=== PATIENT | female | born 1945 | race African-American/Black ===

== ENCOUNTER 2016-12-03 20:46 | Inpatient (IN) ==
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
[2016-12-03 23:20] LABS: Basophils % 0.1 % (0.0-0.8); Immature Granulocytes % 2.1 %; Immature Granulocytes Absolute 0.75 #; Lymphocytes % 8.5 % (21.3-54.2); Mean Corpuscular HGB Conc 30.9 GM/DL (32-36); Mean Corpuscular Hemoglobin 23 PG (27-34); Mean Corpuscular Volume 74.9 FL (87-102); Mean Platelet Volume 10.3 FL (9.6-12.0); Monocytes # 1.2 10*3/uL (0.11-0.8); Monocytes % 3.5 % (1.7-12.7); Neutrophils # 30.1 10*3/uL (1.4-7.4); Neutrophils % 85.8 % (38.7-73.9); Platelet Count 415 T/CUMM (130-400); Red Blood Count 1.99 MC/CUMM (3.8-5.5); Red Cell Distribution Width 18.4 % (9.3-17.3); White Blood Count 35.1 T/CUMM (4-12)
--- NOTE | 2016-12-03 23:21 | Hospitalist History & Physical ---
Assessment and Plan (1) Abdominal mass, RLQ (right lower quadrant) Status: Acute Assessment and plan: The patient admits to the hospital with a large mass in the abdomen. We will obtain CT scan of abdomen and pelvis to evaluate the possible origin of the tumor. We will obtain cancer antigen markers 125, 19-9, and CEA. The patient will be treated for symptoms and given IV hydration overnight. We will recheck electrolytes tomorrow. Current Visit: Yes History of Present Illness Chief complaint: Abdominal pain and mass History of present illness: Ms. Kim is a 71 year old female who comes in transfer from [facility]. The patient presented there with abdominal distention and abdominal pain. We have no prior medical records for the patient. She states that her discomfort began about 2 days prior to admission to the hospital. The patient presents with large hard mass in the right lower mid and central abdomen. The patient denies shortness of breath or angina. The patient denies fever, chills. The patient states that she has been losing weight over the last several months and is now bedbound. Allergies Allergy/AdvReac Type Severity Reaction Status Date / Time No Known Allergies Allergy Verified 12/03/16 21:03 Medical,Surgical,& Family Hx - Medical History Endocrine: History of: Diabetes Mellitus (NIDDM) - Family History Family History: Reports;: Family Hypertension - Social History Smoking Status: Never smoker Frequency of Alcohol Use: None Type of Drug Use: None Marital Status: Single Lives With:: Alone Functional capacity: bed bound 12 point system: reviewed and no additional remarkable complaints except as stated Exam - Constitutional Vitals: Period Temp Pulse Resp BP Sys/Stout Pulse Ox Last 24 Hr 98.6 F-98.6 F 96-96 22-22 115-115/68-68 97 Exam: Constitutional System: Mild distress. No tremulousness. This is an emaciated patient with protuberant abdomen Head: Normocephalic, atraumatic. Ears, Nose and Throat System: No evidence of Otitis or Mastoiditis. No epistaxis or discharge Eyes System: Pupils equal, round, and reactive. Extraocular muscles intact. Neck: Supple, without adenopathy, No jugular venous distention. No thyromegaly , neck mass, or prior surgery apparent. Respiratory System: Chest clear to auscultation. Cardiovascular System: Heart with regular rate and rhythm. No murmur. GI System: Abdomen protuberant with a hard mass seeming to arise in the right lower quadrant and taking up about half of the belly Musculoskeletal System: limbs with 1+ pedal edema. Full distal pulses. Neurological System: No discernable sensory deficit. No aphasia Psychiatric System: Conversation is befudled Results - Labs Lab Results: I have reviewed the past 24 hour labs
[2016-12-03 23:28] LABS: Hematocrit 14.9 VOL% (35.7-47.0); Hemoglobin 4.6 GM/DL (12.0-16.0)
[2016-12-03 23:30] LABS: Calcium 7.8 MG/DL (8.5-10.1); Osmolality,Calculated 279.4 MOS/KG (273-304); Potassium 3.1 MMOL/L (3.5-5.1)
[2016-12-03 23:31] LABS: Apearance,Urine Slightly Hazy (Clear); Bacteria,Urine Occasional /HPF (Few); Bilirubin,Urine Negative (Negative); Blood, Urine Small mg/dL (Negative); Glucose,Urine (UA) Negative (Negative); Ketones,Urine Negative (Negative); Nitrite,Urine Negative (Negative); Protein,Urine 30 MG/DL; RBC,Urine 1 /HPF (0-4); Urine Color Yellow (Yellow); Urine Specific Gravity 1.055 (1.001-1.035); WBC,Urine 3 /HPF (0-6)
[2016-12-03] MEDS ORDERED: ONDANSETRON 4 MG/2 ML VIAL IV PRN (23:40)
[2016-12-03] MEDS ORDERED: MORPHINE 2 MG/1 ML SYRINGE IV PRN (23:40)
[2016-12-03] MEDS ORDERED: ACETAMINOPHEN 325 MG TABLET PO PRN (23:40)
[2016-12-04 00:02] LABS: Band Neutrophils 6 % (0-10); Lymphocytes 9 % (20-55); Segmented Neutrophils 82 % (50-85); Total Cells Counted 100
[2016-12-04 00:03] LABS: Basophilic Stippling Slight; Hypochromasia 3+; Microcytosis 3+; Platelet Estimate Normal; Polychromasia 1+; Rouleau 1+
[2016-12-04] MEDS ORDERED: SODIUM CHLORIDE 0.9% 250 ML IV PRN (00:27)
[2016-12-04 01:20] LABS: Alanine Aminotransferase < 6 U/L (13-56); Albumin 1.4 G/DL (3.4-5.0); Alkaline Phosphatase 118 U/L (45-117); Aspartate Amino Transferase 15 U/L (0-37); Blood Urea Nitrogen 14 MG/DL (7-18); Calcium 7.7 MG/DL (8.5-10.1); Glucose 95 MG/DL (74-106); Osmolality,Calculated 281.3 MOS/KG (273-304); Potassium 3.1 MMOL/L (3.5-5.1); Sodium 141 MMOL/L (136-145); Total Protein 6.4 G/DL (6.4-8.3)
[2016-12-04 01:23] LABS: Basophils # 0.1 10*3/uL (0.0-0.2); Basophils % 0.2 % (0.0-0.8); Immature Granulocytes % 2.2 %; Immature Granulocytes Absolute 0.81 #; Lymphocytes # 3.2 10*3/uL (1.4-4.0); Lymphocytes % 8.6 % (21.3-54.2); Mean Corpuscular HGB Conc 31.6 GM/DL (32-36); Mean Corpuscular Hemoglobin 24 PG (27-34); Mean Corpuscular Volume 74.9 FL (87-102); Mean Platelet Volume 10.4 FL (9.6-12.0); Monocytes # 1.3 10*3/uL (0.11-0.8); Monocytes % 3.6 % (1.7-12.7); Neutrophils # 31.3 10*3/uL (1.4-7.4); Neutrophils % 85.4 % (38.7-73.9); Platelet Count 415 T/CUMM (130-400); Red Blood Count 2.07 MC/CUMM (3.8-5.5); Red Cell Distribution Width 18.4 % (9.3-17.3); White Blood Count 36.6 T/CUMM (4-12)
[2016-12-04 01:26] LABS: Hematocrit 15.5 VOL% (35.7-47.0); Hemoglobin 4.9 GM/DL (12.0-16.0)
[2016-12-04] MEDS: POTASSIUM CHLORIDE 20 MEQ TABLET PO SCH ×3 (02:20→09:28)
[2016-12-04] MEDS: SODIUM CHLORIDE 0.9% 1,000 ML IV SCH ×3 (02:22→18:06)
[2016-12-04 03:04] LABS: Band Neutrophils 1 % (0-10); Hypochromasia 3+; Lymphocytes 9 % (20-55); Microcytosis 3+; Platelet Estimate Normal; Polychromasia Slight; Segmented Neutrophils 87 % (50-85); Total Cells Counted 100
[2016-12-04] MEDS ORDERED: PNEUMOCOCCAL VACCINE (13 VALENT) 0.5 ML SYRINGE IM ONE (04:15)
[2016-12-04] MEDS ORDERED: PANTOPRAZOLE 40 MG TABLET PO SCH (09:00)
[2016-12-04] MEDS ORDERED: ENOXAPARIN 30 MG/0.3 ML SYRINGE SUBCUT SCH (09:00)
--- NOTE | 2016-12-04 09:04 | CT Report ---
CT of the head without contrast. Indication: Altered mental status. No previous study. There is a partial empty sella. There is generalized prominence of the ventricles and sulci consistent with age-appropriate atrophy. There is no mass effect, midline shift, or area of hemorrhage. No cortical infarct is seen at this time. There are mild areas of low density in the periventricular white matter. In a patient of this age, these findings usually are associated with chronic microvascular ischemia. The calvarium is intact. Included paranasal sinuses and the mastoid air cells are clear. Impression: Aging changes, with mild chronic microvascular ischemia. No acute intracranial process is seen. The CT exam was performed using one or more of the following dose reduction techniques: Automated exposure control, adjustment of the mA and/or kV according to patient size, or use of iterative reconstruction technique. PROCEDURE INTERPRETED AT [facility] DEPARTMENT OF RADIOLOGY Final Report Signed by: Dr. Malika Mancia
--- NOTE | 2016-12-04 16:57 | General Surgery Consult Note ---
Assessment and Plan (1) Abdominal mass, RLQ (right lower quadrant) Status: Acute Assessment and plan: This patient does not have peritonitis. I was consulted for peritonitis. She has a chronic abdominal mass which she says has been present for 13 years. No surgical intervention is recommended. A repeat CT scan with IV and p.o. contrast has been ordered. A repeat hemoglobin has been ordered and coags have been ordered as well. I will assist with workup of this abdominal mass but this is not an emergent general surgical issue. Current Visit: Yes History of Present Illness Chief complaint: Abdominal pain with mass History of present illness: Ms. Kim is a 71 year old female who was admitted to our hospital through the ER last night for an abdominal mass seen on outside hospital CT scan with a hemoglobin of 5. She had a microcytic anemia with elevated white blood cell count around 35,000. She was admitted to the hospital and assume her workup was initiated. She was given 3 units of blood last night but no blood counts have been reordered. Her vital signs are stable and she has baseline low blood pressure but her heart rate is normal and she is afebrile. She is very difficult to interview and rambles a lot when I ask her questions which are a lot of nonsensical answers. There are no family members in the room to obtain collateral information through. Home Medications Medication Instructions Recorded Confirmed Type No Known Home Medications [No 12/04/16 12/04/16 History Known Home Medications] Allergies Allergy/AdvReac Type Severity Reaction Status Date / Time No Known Allergies Allergy Verified 12/04/16 05:31 Medical,Surgical,& Family Hx - Medical History Endocrine: History of: Diabetes Mellitus (IDDM), Diabetes Mellitus (NIDDM) - Surgical History Abdominal Surgeries: Patient denies: Abdominal Surgery - Family History Family History: Reports;: Family Hypertension - Social History Smoking Status: Never smoker Frequency of Alcohol Use: None Type of Drug Use: None - Constitutional Constitutional: Present: as per HPI - EENT Nose, mouth and throat: Present: as per HPI - Cardiovascular Cardiovascular: Present: as per HPI - Respiratory Respiratory: Present: as per HPI - Gastrointestinal Gastrointestinal: Present: as per HPI - Genitourinary Genitourinary: Present: as per HPI - Musculoskeletal Musculoskeletal: Present: as per HPI - Neurological Neurological: Present: as per HPI - Endocrine Endocrine: Present: as per HPI Hematologic/Lymphatic: Present: as per HPI Exam - Constitutional Vitals: Period Temp Pulse Resp BP Sys/Stout Pulse Ox Last 24 Hr 98.1 F-99.7 F 83-96 16-22 84-115/49-68 90-99 General appearance: normal weight, no acute distress - Head Head exam: Present: normal inspection, normocephalic - Eye Eye exam: Present: EOMI Pupils: Present: HERNAN - ENT ENT exam: Present: normal exam Mouth exam: Present: normal external inspection, normal voice - Neck Neck exam: Present: normal inspection, trachea midline - Respiratory Respiratory exam: Present: clear to auscultation bilaterally. Absent: accessory muscle use, chest wall tenderness - Cardiovascular Cardiovascular exam: Present: RRR. Absent: systolic murmur, tachycardia - GI/Abdominal GI/Abdominal exam: Present: hypoactive bowel sounds, tenderness (There is some minimal tenderness over the mass but no peritonitis), soft. Absent: distended, guarding, rebound - Extremities Exam Extremities exam: Present: normal inspection, normal capillary refill - Back Exam Back exam: Present: normal inspection - Neurological Exam Neurological exam: Present: alert, oriented X3 Speech: Present: normal - Skin Skin exam: Present: normal color, warm Results - Labs CBC & BMP: 12/04/16 00:43 12/04/16 00:43 - Diagnostic Findings Procedure: CT Abdomen and Pelvis: image reviewed by me (Large abdominal mass on noncontrasted abdomen CT.), CT - chest: image reviewed by me (The chest CT with IV contrast shows only the top 3 cm of the abdominal mass and it is not possible to characterize the mass on the thoracic CT.)
--- NOTE | 2016-12-04 17:02 | Hospitalist Progress Note ---
Hospitalist: Subjective Interval history: Patient transferred from [facility] to [place] for further evaluation and management of a 24.5cm abdominal mass. Patient's family is present. Her sister states that for the past month, she has been bed ridden because of abdominal distension and pain. Patient did have some diarrhea but nursing states that her stools have been soft and green. Patient denies any n/ v. She has lost weight but family does not know how much. Sister states that patient has been taking advil for fevers. There have been no reports of melena/ hematochezia/hematemesis. Patient currently denies any CP or SOB. She is on a clear liquid diet and has been tolerating it. Exam - Constitutional Vitals: Period Temp Pulse Resp BP Sys/Stout Pulse Ox Last 24 Hr 98.1 F-99.7 F 83-96 16-22 84-115/49-68 90-99 General appearance: no acute distress, cachectic - Head Head exam: Present: other (bitemporal wasting) - Eye Eye exam: Present: EOMI. Absent: scleral icterus Pupils: Present: HERNAN - ENT ENT exam: Present: normal oropharynx (poor dentition) - Respiratory Respiratory exam: Present: clear to auscultation bilaterally. Absent: rales, rhonchi, wheezes - Cardiovascular Cardiovascular exam: Present: regular rate and rhythm - GI/Abdominal GI/Abdominal exam: Present: normal bowel sounds, distended, guarding, hyperactive bowel sounds, mass, tenderness, rebound - Extremities Exam Extremities exam: Absent: edema - Neurological Exam Neurological exam: Present: alert (knows she is in [place]; knows year; knows name) - Skin Skin exam: Present: other (skin break down with opened areas of bleeding on right hip/thigh/buttock; skin breakdown on right breast) Results - Labs CBC & BMP: 12/04/16 17:03 12/04/16 00:43 - Impressions Active Issues: 1. Severe anemia 2. Suspected GIB 3. NSAID use 4. Leukocytosis, significant 5. Abdominal mass 6. Acute abdominal pain, concerned about peritonitis 7. Severe protein calorie malnutrition 8. Hypokalemia 9. extensive Wounds Plan: consult surgery/GI/post transfusion HCT; PPI/await blood cultures; add merrem; consult nutrition and wound care; DVT prophalaxis with SCDs; replete potassium; monitor electrolytes The plan of care may change as more information becomes available.
[2016-12-04 17:35] LABS: Hematocrit 22.5 VOL% (35.7-47.0); Hemoglobin 7.4 GM/DL (12.0-16.0)
[2016-12-04 17:47] LABS: INR 1.2; PT Patient Result 12.3 SECS; Partial Thromboplastin Time 35.8 SECS (0-40)
[2016-12-04] MEDS: MEROPENEM 1,000 MG in SODIUM CHLORIDE 0.9% 100 ML IV SCH (18:06)
--- NOTE | 2016-12-04 20:32 | CT Report ---
CT of the abdomen and pelvis with intravenous and oral contrast. 100 cc Omni 350. Comparison: Outside exam from yesterday. Indication: Abdominal mass. The heart is enlarged. There are small bilateral pleural effusions. There are areas of atelectasis present within each lung base. The liver is enlarged with a length of 22 cm. Within the right lobe of the liver laterally, there is a 12 mm hypodensity on the venous phase, which is not visible on the delayed phase. This could represent a hemangioma or metastatic focus. The spleen is normal in size. The adrenal glands do not appear to be enlarged. There is a cyst at the superior pole of the left kidney. No hydronephrosis. The ureters are normal in course and caliber. There is mass effect on the urinary bladder. A Dickson catheter is in place. No definite pancreatic enlargement. The abdominal aorta is of normal caliber. There is a very large mass present within the abdomen, appearing to most likely arise from the pelvis. It measures 26 cm in the craniocaudal dimension, 19 cm in the AP dimension, and 21 cm in the transverse dimension. There is an outer enhancing rind, with inner low density and mixed density and calcific densities centrally. There is free fluid present within the pelvis. Dilated vasculature is noted within the pelvis. There is a very prominent dilated left gonadal vein. It would be difficult to exclude adenopathy. No evidence of bowel obstruction. The pelvic organs are not discernible. There is a somewhat mottled the appearance of bony structures within the pelvis and spinal column. This could be due to osteoporosis, metastatic disease or multiple myeloma. Impression: 1. There is a large intra-abdominal and intrapelvic mass, most likely arising from the pelvic area. The pelvic organs are not discretely seen. I do not have a history of whether or not there has been a hysterectomy. There is a markedly dilated left gonadal vein. This is a midline mass, and could arise from the uterus, and if so, uterine sarcoma is of concern. Alternatively, it could arise from an ovary, and serous and mucinous cystadenoma/ cystadenocarcinoma is another consideration. There is no evidence of bowel obstruction making a bowel origin less likely. There is free fluid. There are dilated vascular structures within the pelvis, and adenopathy cannot be excluded. 2. Small liver lesion, hemangioma versus met. 3. Small bilateral pleural effusions. 4. Hepatomegaly and cardiomegaly. 5. Simple cyst at the superior pole of the left kidney. 6. Mildly mottled appearance of the osseous structures, demineralization, versus metastatic disease versus multiple myeloma. The CT exam was performed using one or more of the following dose reduction techniques: Automated exposure control, adjustment of the mA and/or kV according to patient size, or use of iterative reconstruction technique. PROCEDURE INTERPRETED AT [facility] DEPARTMENT OF RADIOLOGY Final Report Signed by: Dr. Malika Mancia
[2016-12-04] MEDS: PANTOPRAZOLE 40 MG VIAL IV SCH (22:25)
[2016-12-05] MEDS: MEROPENEM 1,000 MG in SODIUM CHLORIDE 0.9% 100 ML IV SCH ×3 (02:35→17:43)
[2016-12-05] MEDS: SODIUM CHLORIDE 0.9% 1,000 ML IV SCH ×3 (02:35→17:06)
[2016-12-05 06:21] LABS: Basophils # 0.1 10*3/uL (0.0-0.2); Basophils % 0.2 % (0.0-0.8); Eosinophils % 0.1 % (0.00-10.9); Hematocrit 22.1 VOL% (35.7-47.0); Hemoglobin 7.1 GM/DL (12.0-16.0); Immature Granulocytes % 1.5 %; Immature Granulocytes Absolute 0.45 #; Lymphocytes # 2.4 10*3/uL (1.4-4.0); Lymphocytes % 7.9 % (21.3-54.2); Mean Corpuscular HGB Conc 32.1 GM/DL (32-36); Mean Corpuscular Hemoglobin 25 PG (27-34); Mean Corpuscular Volume 78.4 FL (87-102); Mean Platelet Volume 10.5 FL (9.6-12.0); Monocytes % 3.4 % (1.7-12.7); Neutrophils # 26.2 10*3/uL (1.4-7.4); Neutrophils % 86.9 % (38.7-73.9); Platelet Count 389 T/CUMM (130-400); Red Blood Count 2.82 MC/CUMM (3.8-5.5); Red Cell Distribution Width 18.5 % (9.3-17.3); White Blood Count 30.2 T/CUMM (4-12)
[2016-12-05 07:00] LABS: Alanine Aminotransferase < 6 U/L (13-56); Albumin 1.4 G/DL (3.4-5.0); Alkaline Phosphatase 115 U/L (45-117); Aspartate Amino Transferase 16 U/L (0-37); Blood Urea Nitrogen 11 MG/DL (7-18); Calcium 7.8 MG/DL (8.5-10.1); Glucose 71 MG/DL (74-106); Osmolality,Calculated 277.3 MOS/KG (273-304); Potassium 3.3 MMOL/L (3.5-5.1); Sodium 141 MMOL/L (136-145); Total Protein 6.4 G/DL (6.4-8.3)
[2016-12-05 07:49] LABS: Band Neutrophils 1 % (0-10); Hypochromasia 1+; Lymphocytes 3 % (20-55); Microcytosis 1+; Platelet Estimate Adequate; Segmented Neutrophils 91 % (50-85); Spherocytes Few; Target Cells Slight; Total Cells Counted 100
[2016-12-05] MEDS: PANTOPRAZOLE 40 MG VIAL IV SCH ×2 (08:46→21:27)
[2016-12-05 09:22] LABS: Cancer Antigen 19-9 62.5 U/ML (0-37); Carcinoembryonic Antigen < 0.5 NG/ML (0.0-5.0)
[2016-12-05] MEDS: POTASSIUM CHLORIDE RIDER 10 MEQ in PREMIX 1 EACH IV PRN ×4 (10:20→19:02)
--- NOTE | 2016-12-05 11:07 | Hospitalist Progress Note ---
Assessment and Plan (1) Anemia Status: Acute Assessment and plan: Fecal occult study. Current Visit: Yes (2) Hypokalemia Status: Acute Assessment and plan: Supplement potassium with 40 mEq KCl. Check magnesium in a.m. Current Visit: Yes (3) Abdominal mass, RLQ (right lower quadrant) Status: Acute Current Visit: Yes Hospitalist: Subjective Interval history: Patient is resting comfortably. No fevers or chills. Family members at the bedside and they are requesting patient's diet be advanced. Of note, patient CA 19-9 is elevated at 62.5. Further assessment by gastroenterology is to be done in consultation today. Exam - Constitutional Vitals: Period Temp Pulse Resp BP Sys/Stout Pulse Ox Last 24 Hr 97.7 F-99.2 F 75-85 12-20 91-121/50-72 92-99 General appearance: no acute distress - Head Head exam: Present: normal inspection - Neck Neck exam: Present: normal inspection - Respiratory Respiratory exam: Present: clear to auscultation bilaterally - Cardiovascular Cardiovascular exam: Present: regular rate and rhythm - GI/Abdominal GI/Abdominal exam: Present: normal bowel sounds - Neurological Exam Neurological exam: Present: alert, oriented X3 - Psychiatric Psychiatric exam: Present: normal affect, normal mood - Skin Skin exam: Present: normal color Results - Labs CBC & BMP: 12/05/16 05:17 12/05/16 05:17
--- NOTE | 2016-12-05 11:29 | General Surgery Progress Note ---
Assessment and Plan (1) Abdominal mass, RLQ (right lower quadrant) Status: Acute Assessment and plan: This mass appears to arise from adnexal structures. Please call back with any further questions. No general surgical intervention is recommended. Current Visit: Yes Subjective Patient reports: Present: no new complaints, afebrile Exam - Constitutional Vitals: Period Temp Pulse Resp BP Sys/Stout Pulse Ox Last 24 Hr 97.7 F-99.2 F 75-85 12-20 91-121/50-72 92-99 General appearance: normal weight, no acute distress - Head Head exam: Present: normal inspection - Eye Eye exam: Present: EOMI - ENT ENT exam: Present: normal exam Mouth exam: Present: normal external inspection, normal voice - Neck Neck exam: Present: normal inspection, trachea midline - Respiratory Respiratory exam: Absent: accessory muscle use, prolonged expiratory phase - Cardiovascular Cardiovascular exam: Absent: tachycardia - GI/Abdominal GI/Abdominal exam: Present: mass Results - Labs CBC & BMP: 12/05/16 05:17 12/05/16 05:17 - Diagnostic Findings Procedure: CT Abdomen and Pelvis: image reviewed by me, report reviewed by me ( CT abdomen and pelvis with IV contrast demonstrates a mass which appears to arise from the adnexa or uterus.)
--- NOTE | 2016-12-05 13:04 | OB/GYN Consult Note ---
History of Present Illness Chief complaint: Anemia pelvic mass History of present illness: Ms. Kim is a 71 year old female With history of large pelvic mass which she says has been present for the last 13 years. Patient denies any vaginal bleeding. Patient is noted to be a poor historian on specifics. Will order CA 125 and CA-19-9. This may represent a large uterine leiomyoma versus sarcoma. Due to size and the patient's age will offer referral to [facility] oncology once discharged Home Medications Medication Instructions Recorded Confirmed Type No Known Home Medications [No 12/04/16 12/04/16 History Known Home Medications] Allergies Allergy/AdvReac Type Severity Reaction Status Date / Time No Known Allergies Allergy Verified 12/04/16 05:31 Medical,Surgical,& Family Hx - Medical History Endocrine: History of: Diabetes Mellitus (IDDM), Diabetes Mellitus (NIDDM) - Surgical History Abdominal Surgeries: Patient denies: Abdominal Surgery - Family History Family History: Reports;: Family Hypertension - Social History Smoking Status: Never smoker Frequency of Alcohol Use: None Type of Drug Use: None 12 point system: reviewed and no additional remarkable complaints except as stated Exam MEATMAN - Constitutional Vitals: Vital Signs Temp Pulse Pulse Resp BP BP Pulse Ox 12/05/16 11:58 97.6 F 91 H 18 99/46 12/05/16 07:18 97.7 F 85 18 107/63 12/05/16 04:33 98.7 F 75 18 121/72 12/05/16 02:20 20 12/05/16 01:03 20 12/05/16 00:00 99.2 F 81 18 92/52 12/04/16 20:40 98.1 F 80 18 91/50 12/04/16 16:00 98.7 F 84 12 103/50 12/04/16 13:36 98.7 F 84 16 103/50 95 Pulse Ox 12/05/16 11:58 97 12/05/16 07:18 99 12/05/16 04:33 93 L 12/05/16 02:20 12/05/16 01:03 12/05/16 00:00 95 12/04/16 20:40 97 12/04/16 16:00 95 12/04/16 13:36 - Breast Menstruation: post menopausal - GI/Abdominal GI/Abdominal exam: Present: mass Results - Labs CBC & BMP: 12/05/16 05:17 12/05/16 05:17
--- NOTE | 2016-12-05 13:25 | Gastrointestinal Consult Note ---
Assessment and Plan (1) Microcytic hypochromic anemia Status: Acute Assessment and plan: No clinical history of GI blood loss or HEALTH AND SAFETY TRAINER blood loss of the presence of her large pelvic tumor suggest likelihood of ongoing HEALTH AND SAFETY TRAINER blood loss. She denies any history of pica. Will proceed with EGD in a.m. to further evaluate and asked HEALTH AND SAFETY TRAINER to evaluate the pelvic mass. Current Visit: Yes (2) Pelvic mass in female Status: Acute Assessment and plan: Large pelvic mass of long-standing history suggest possible fibroma or sarcoma last HEALTH AND SAFETY TRAINER to evaluate. Unlikely this is coming from the GI tract when she is severely anemic and this will need to be further evaluated. Current Visit: Yes History of Present Illness Chief complaint: Microcytic anemia History of present illness: Ms. Kim is a 71 year old female Who was admitted for evaluation of a large pelvic mass that has been present for multiple years. Patient prior was originally seen for some complaints of hip ulcers and was found to have this larger mass and anemia was subsequently transferred here for further evaluation. She is a poor historian but does states she has been told she was anemic "all her life and has had this mass for over 10 years. She denies any rectal bleeding she has had no vaginal bleeding per report she denies any history of pica. Home Medications Medication Instructions Recorded Confirmed Type No Known Home Medications [No 12/04/16 12/04/16 History Known Home Medications] Allergies Allergy/AdvReac Type Severity Reaction Status Date / Time No Known Allergies Allergy Verified 12/04/16 05:31 Medical,Surgical,& Family Hx - Medical History Endocrine: History of: Diabetes Mellitus (IDDM), Diabetes Mellitus (NIDDM) - Surgical History Abdominal Surgeries: Patient denies: Abdominal Surgery - Family History Family History: Reports;: Family Hypertension - Social History Smoking Status: Never smoker Frequency of Alcohol Use: None Type of Drug Use: None - Constitutional Constitutional: Absent: anorexia, chills, fatigue, fever(s) - EENT Eyes: Absent: blurry vision Ears: Absent: decreased hearing Nose, mouth and throat: Absent: dysphagia, epistaxis, headache(s) - Cardiovascular Cardiovascular: Absent: chest pain at rest, chest pain with activity, edema - Respiratory Respiratory: Absent: cough, dyspnea, dyspnea on exertion - Gastrointestinal Gastrointestinal: Absent: abdominal pain, bloating, hematemesis, hematochezia, melena, nausea, vomiting - Genitourinary Genitourinary: Absent: flank pain, hematuria - Neurological Neurological: Absent: confusion, convulsions - Endocrine Endocrine: Absent: fatigue - Hematologic/Lymphatic Hematologic/Lymphatic: Absent: easy bleeding, easy bruising, lymphadenopathy Exam - Constitutional Vitals: Period Temp Pulse Resp BP Sys/Stout Pulse Ox Last 24 Hr 97.6 F-99.2 F 75-91 12-20 91-121/46-72 93-99 General appearance: normal weight, no acute distress - Head Head exam: Present: normal inspection, normocephalic, atraumatic - Eye Eye exam: Absent: conjunctival injection, scleral icterus Pupils: Present: HERNAN. Absent: irregular - ENT ENT exam: Present: normal oropharynx - Neck Neck exam: Absent: lymphadenopathy, thyromegaly - Respiratory Respiratory exam: Present: clear to auscultation bilaterally. Absent: accessory muscle use, rales - Cardiovascular Cardiovascular exam: Present: regular rate and rhythm. Absent: systolic murmur - GI/Abdominal GI/Abdominal exam: Present: distended, mass. Absent: ascites, tenderness, rebound, soft - Extremities Exam Extremities exam: Absent: edema - Neurological Exam Neurological exam: Present: alert, oriented X3 - Psychiatric Psychiatric exam: Present: normal affect, normal mood Results - Labs CBC & BMP: 12/05/16 05:17 12/05/16 05:17 Lab Results: I have reviewed the past 24 hour labs
[2016-12-05] MEDS: POTASSIUM CHLORIDE 20 MEQ/15 ML UDCUP PO SCH (14:33)
[2016-12-05] MEDS ORDERED: LOPERAMIDE 2 MG CAPSULE PO PRN (16:12)
[2016-12-06] MEDS: SODIUM CHLORIDE 0.9% 1,000 ML IV SCH ×3 (01:06→15:40)
[2016-12-06] MEDS: MEROPENEM 1,000 MG in SODIUM CHLORIDE 0.9% 100 ML IV SCH ×3 (01:19→17:16)
[2016-12-06 07:03] LABS: Calcium 7.5 MG/DL (8.5-10.1); Magnesium 1.5 MG/DL (1.8-2.4); Potassium 3.5 MMOL/L (3.5-5.1)
[2016-12-06 07:11] LABS: Basophils # 0.1 10*3/uL (0.0-0.2); Basophils % 0.2 % (0.0-0.8); Eosinophils # 0.1 10*3/uL (0.0-0.87); Eosinophils % 0.2 % (0.00-10.9); Hematocrit 21.1 VOL% (35.7-47.0); Immature Granulocytes % 1.1 %; Immature Granulocytes Absolute 0.29 #; Lymphocytes # 2.5 10*3/uL (1.4-4.0); Lymphocytes % 9.2 % (21.3-54.2); Mean Corpuscular HGB Conc 31.8 GM/DL (32-36); Mean Corpuscular Hemoglobin 25 PG (27-34); Mean Corpuscular Volume 79.6 FL (87-102); Mean Platelet Volume 10.7 FL (9.6-12.0); Monocytes # 0.8 10*3/uL (0.11-0.8); Monocytes % 2.8 % (1.7-12.7); Neutrophils # 23.5 10*3/uL (1.4-7.4); Neutrophils % 86.5 % (38.7-73.9); Platelet Count 357 T/CUMM (130-400); Red Blood Count 2.65 MC/CUMM (3.8-5.5); White Blood Count 27.1 T/CUMM (4-12)
[2016-12-06 07:12] LABS: Hemoglobin 6.7 GM/DL (12.0-16.0)
[2016-12-06 07:40] LABS: Band Neutrophils 2 % (0-10); Hypochromasia 1+; Lymphocytes 11 % (20-55); Microcytosis 1+; Segmented Neutrophils 85 % (50-85); Total Cells Counted 100
--- NOTE | 2016-12-06 08:06 | EKG Report ---
Stationary ECG Study [facility] Test Date: 12/06/2016 8:07:07 AM Pat Name: PENNY QUIROZ Department: Room: 345 Gender: F Pool Hall Inspector: KARISSA : 1945 Requested by: Wanda Mckeon Order Number: [id number] Reading MD: OTTO MELO Intervals [place] Rate: 78 P: 65 HI: 175 QRS: 53 QRSD: 85 T: 64 QT: 347 QTc: 381 Interpretive Statements SINUS RHYTHM WITH OCCASIONAL SUPRAVENTRICULAR PREMATURE COMPLEXES Electronically Signed On 12-06-16 19:19:47 CDT by OTTO MELO [email or web address]
[2016-12-06] MEDS ORDERED: SODIUM CHLORIDE 0.9% 250 ML IV PRN (09:01)
[2016-12-06] MEDS: PANTOPRAZOLE 40 MG VIAL IV SCH ×2 (09:48→21:11)
[2016-12-06] MEDS ORDERED: BISACODYL 5 MG TABLET PO ONE (12:00)
[2016-12-06] MEDS ORDERED: LIDOCAINE 2% 5 ML VIAL ONE (12:11)
[2016-12-06] MEDS ORDERED: PROPOFOL 200 MG/20 ML VIAL IV ONE (12:11)
--- NOTE | 2016-12-06 12:13 | Hospitalist Progress Note ---
Assessment and Plan (1) Anemia Status: Acute Assessment and plan: 1)anemia- transfusing again this morning, 2U PRBCS. no active bleeding she reports. EGD this morning. She has a pelvic mass and Dr Rich recommends referral to [facility] at discharge. Tumor markers pending. She denies ever having vaginal bleeding. However, she is not a good historian. 2)GNR in blood- ID pending, only 1 of 2 cultures positive. On Merrem. WBC coming down. 3)hypokalemia- replacing Current Visit: Yes (2) Hypokalemia Status: Acute Current Visit: Yes (3) Microcytic hypochromic anemia Status: Acute Current Visit: Yes (4) Pelvic mass in female Status: Acute Current Visit: Yes Hospitalist: Subjective Interval history: Mrs Luna is feeling ok this morning. She is going to have blood transfusion and EGD today. She denies signs of bleeding anywhere. Exam - Constitutional Vitals: Period Temp Pulse Resp BP Sys/Stout Pulse Ox Last 24 Hr 98.2 F-99.4 F 70-86 18-20 93-110/49-70 95-96 General appearance: normal weight, no acute distress - Eye Eye exam: Present: EOMI. Absent: scleral icterus - Respiratory Respiratory exam: Present: clear to auscultation bilaterally - Cardiovascular Cardiovascular exam: Present: regular rate and rhythm - GI/Abdominal GI/Abdominal exam: Present: normal bowel sounds, mass, soft - Extremities Exam Extremities exam: Absent: edema - Neurological Exam Neurological exam: Present: alert, oriented X3 - Skin Skin exam: Present: warm, dry Results - Labs CBC & BMP: 12/06/16 05:23 12/06/16 05:23 Lab Results: I have reviewed the past 24 hour labs
--- NOTE | 2016-12-06 12:19 | Operative Note ---
Date of procedure: 12/06/16 Pre-op diagnosis: Microcytic anemia Procedure: EGD 71-year-old female with large pelvic tumor microcytic anemia now for EGD further evaluate. Informed symptoms during the patient She was sedated with general anesthesia per anesthesia protocol. Patient placed left lateral decubitus position the Olympus flexible video upper and scopes were located in direct vision esophagus intubated findings: Esophagus-normal esophageal mucosa throughout. No significant hiatal hernia was seen. Stomach-normal insufflation normal mucosa to direct and retroflexed views of the body fundus cardia and antrum of the stomach. Pylorus-normal Duodenum-normal for the bulb and duodenum to the third portion of duodenum. The procedure terminated placed our procedure rails she is discharge recovery in good condition. Postop diagnosis 1. Normal EGD 2. Colonoscopy in a.m. Anesthesia: MAC Surgeon / Physician: Douglas Burgos Estimated blood loss: none Specimens: none sent Condition: stable Disposition: post procedure unit Results - Labs CBC & BMP: 12/06/16 05:23 12/06/16 05:23 Discharge Plan - Discharge Medications No Action No Known Home Medications [No Known Home Medications] - Follow Up or Referral - Forms/Instructions
--- NOTE | 2016-12-06 12:21 | Anesthesia Post-Op ---
Anesthesia Post OP - Post Ansesthetic Evaluation Patient seen in post op: Yes Resp: within normal limits CV: within normal limits Mental: within normal limits Temp: within normal limits Cajp-Kd-Ljdounvbq: within normal limits Nausea and Vomiting: within normal limits Pain: within normal limits
--- NOTE | 2016-12-06 15:18 | Physician Query Form ---
CLICK EDIT DOCUMENT TO SELECT QUERY ANSWER --> OK --> SIGN Ann Vann RN Clinical Telegraphic Typewriter Operator W) [phone] (f) [phone] [email or web address] PROVIDERS: Make your selection(s) from the choices in EACH section by typing an "x" and enter comments in the comment section. Please use your independent medical judgment in providing your response. This request does not imply that any particular answer is desired or expected. CLINICAL INDICATORS: (Providers should not edit this section) Based on documentation of "Disorientation" "Only oriented to person" "Hypokalemia" "Leukocytosis" "Acute microcytic hypochromic anemia" "Acute pelvic mass" WBC of 35.1. Treated with Transfusion fo 4 units PRBC, IV Mefoxin , Please clarify for cause of Disorientation ACUITY: ( ) Acute ( ) Acute on Chronic ( x) Chronic ( ) Clinically unable to determine NATURE: ( ) Delirium due to general medical condition ( x) Dementia ( ) Encephalopathy ( ) Unconscious ( ) Transient level of awareness ( ) Comatose ( ) Locked-in State ( ) Persistent Vegetative State ( ) Other, please specify: ( ) Clinically unable to determine Please indicate the underlying cause of the altered mental status (CHECK ALL THAT APPLY): ( ) Baseline dementia (x ) Alzheimer's disease ( ) Parkinson's disease ( ) Lewy body dementia ( ) Acute stroke ( ) Late effect of stroke ( ) Reactive (from emotional stress, psychological trauma) ( ) Due to narcotics/other drugs ( ) Post procedural delirium ( ) Transient ischemic attack ( ) Generalized cerebral edema ( ) Normal pressure hydrocephalus ( ) Psychiatric illness ( ) Other, please specify: ( ) Clinically unable to determine Please indicate if there is an infection, sepsis, dehydration or specific organ failure that is causing the dementia. Be specific with clarifying the relationship between that process and the mental status change. COMMENTS: PLEASE ALSO DOCUMENT RESPONSE IN PROGRESS NOTES AND/OR DISCHARGE SUMMARY Use of terms such as suspected, likely, or probable (associated with a specific diagnosis that is being evaluated, monitored, or treated as if it exists) are acceptable and can be restated in the discharge summary if not ruled out. MTDD
[2016-12-06] MEDS: POTASSIUM CHLORIDE 20 MEQ/15 ML UDCUP PO SCH (17:22)
[2016-12-06] MEDS ORDERED: POLYETHYLENE GLYCOL POWDER 255 GM BOTTLE PO ONE (18:00)
[2016-12-06] MEDS ORDERED: BISACODYL 5 MG TABLET ONE (18:20)
[2016-12-06] MEDS: DESITIN 4OZ/NYSTATIN 15 GRAM MIXTURE PASTE TOP SCH (21:15)
[2016-12-07] MEDS: MEROPENEM 1,000 MG in SODIUM CHLORIDE 0.9% 100 ML IV SCH ×3 (00:31→20:20)
[2016-12-07] MEDS: SODIUM CHLORIDE 0.9% 1,000 ML IV SCH ×2 (00:33→04:45)
[2016-12-07 06:06] LABS: Basophils # 0.1 10*3/uL (0.0-0.2); Basophils % 0.2 % (0.0-0.8); Eosinophils # 0.1 10*3/uL (0.0-0.87); Eosinophils % 0.3 % (0.00-10.9); Hematocrit 26.6 VOL% (35.7-47.0); Hemoglobin 8.6 GM/DL (12.0-16.0); Immature Granulocytes % 1.6 %; Immature Granulocytes Absolute 0.38 #; Lymphocytes # 2.5 10*3/uL (1.4-4.0); Lymphocytes % 10.3 % (21.3-54.2); Mean Corpuscular HGB Conc 32.3 GM/DL (32-36); Mean Corpuscular Hemoglobin 26 PG (27-34); Mean Corpuscular Volume 80.6 FL (87-102); Monocytes # 0.8 10*3/uL (0.11-0.8); Monocytes % 3.2 % (1.7-12.7); Neutrophils # 20.1 10*3/uL (1.4-7.4); Neutrophils % 84.4 % (38.7-73.9); Platelet Count 348 T/CUMM (130-400); Red Cell Distribution Width 18.6 % (9.3-17.3); White Blood Count 23.8 T/CUMM (4-12)
[2016-12-07 06:34] LABS: Band Neutrophils 1 % (0-10); Lymphocytes 7 % (20-55); Segmented Neutrophils 91 % (50-85); Total Cells Counted 100
[2016-12-07 06:35] LABS: Alanine Aminotransferase < 6 U/L (13-56); Albumin 1.2 G/DL (3.4-5.0); Alkaline Phosphatase 98 U/L (45-117); Aspartate Amino Transferase 10 U/L (0-37); Blood Urea Nitrogen 10 MG/DL (7-18); Calcium 7.5 MG/DL (8.5-10.1); Giant Platelets Few; Glucose 85 MG/DL (74-106); Hypochromasia 1+; Microcytosis 1+; Osmolality,Calculated 280.1 MOS/KG (273-304); Platelet Estimate Adequate; Potassium 3.2 MMOL/L (3.5-5.1); Sodium 142 MMOL/L (136-145); Total Protein 5.8 G/DL (6.4-8.3)
[2016-12-07] MEDS: POTASSIUM CHLORIDE 20 MEQ TABLET PO SCH ×2 (08:44→21:48)
[2016-12-07] MEDS: PANTOPRAZOLE 40 MG VIAL IV SCH ×2 (08:44→21:49)
[2016-12-07] MEDS ORDERED: POLYETHYLENE GLYCOL POWDER 255 GM BOTTLE PO ONE (10:12)
--- NOTE | 2016-12-07 10:33 | Gastrointestinal Progress Note ---
<Michelle Rachel - Last Filed: 12/07/16 10:31> Assessment and Plan (1) Anemia Status: Acute Assessment and plan: 12/07-normal EGD on yesterday with no findings for source of anemia. H&H stable 11/13.2 units packed red blood cells and yesterday. No reported overt bleeding. Colonoscopy prep was not completed on yesterday therefore continue today and attempt colonoscopy tomorrow. Plan an addendum to followed by Dr. Burgos Current Visit: Yes Gastroenterology - PN: Subj Interval history: CC: Anemia Patient is seen lying in bed awake and alert with family at bedside. She denies any complaints of at this time. She denies any abdominal pain, nausea vomiting. She was scheduled for colonoscopy on today however she did not complete her prep on yesterday. Nursing staff states the Having to wake her up to get her to drink and she did not take in enough and had very minimal bowel movements. We will postpone her colonoscopy until tomorrow and continue her prep today as well as clear liquid diet. H&H is stable 11/13 following 2 units packed red blood cells on yesterday. Abdomen is soft, nontender. ROS: Denies shortness of breath or chest pain Exam (Progress Note) - Constitutional Vitals: Period Temp Pulse Resp BP Sys/Stout Pulse Ox Last 24 Hr 98.2 F-100.4 F 70-91 16-20 87-116/49-70 93-100 General appearance: normal weight, no acute distress - Head Head exam: Present: normal inspection, normocephalic - Eye Eye exam: Present: other (Lids and conjunctive are unremarkable). Absent: scleral icterus - ENT ENT exam: Present: normal exam, normal oropharynx - Neck Neck exam: Present: normal inspection - Respiratory Respiratory exam: Present: clear to auscultation bilaterally. Absent: rales, rhonchi, wheezes - Cardiovascular Cardiovascular exam: Present: regular rate and rhythm. Absent: diastolic murmur , JVD, systolic murmur - GI/Abdominal GI/Abdominal exam: Present: normal bowel sounds, soft. Absent: ascites, distended, mass, organomegaly, tenderness - Extremities Exam Extremities exam: Present: normal inspection, full ROM - Back Exam Back exam: Present: normal inspection - Neurological Exam Neurological exam: Present: alert, altered - Psychiatric Psychiatric exam: Present: other - Skin Skin exam: Present: normal color, warm, dry Results - Labs CBC & BMP: 12/07/16 05:41 12/07/16 05:41 Lab Results: I have reviewed the past 24 hour labs <Douglas Burgos - Last Filed: 12/07/16 22:22> Assessment and Plan (1) Microcytic hypochromic anemia Status: Acute Current Visit: Yes (2) Pelvic mass in female Status: Acute Current Visit: Yes Exam (Progress Note) - Constitutional Vitals: Period Temp Pulse Resp BP Sys/Stout Pulse Ox Last 24 Hr 98.2 F-100.4 F 75-81 16-19 91-107/54-61 93-97 Results - Labs CBC & BMP: 12/07/16 05:41 12/07/16 05:41
--- NOTE | 2016-12-07 11:17 | Hospitalist Progress Note ---
Assessment and Plan (1) Anemia Status: Acute Assessment and plan: 1)anemia- EGD looked ok, cscope deferred to tomorrow because she was not clear yet. Her H&H had predicted increase in hgb after 2 u PRBCs. She has seen no bleeding from rectum, in stool, melena, hematuria, epistaxis, hematemesis, or vaginal bleeding. She has a pelvic mass and Dr Rich recommends referral to [facility] at discharge. CA19-9 elevated, CEA normal, CA125 has not returned from [place] yet. She denies ever having vaginal bleeding. However, she is not a good historian. 2)GNR in blood- ID pending, only 1 of 2 cultures positive. On Merrem. WBC coming down. Bcx still not identified, just marked GNR. Check CXR to complete work up for infection though no focal complaints. 3)hypokalemia- replacing again. 4)leukocytosis, anemia- consider hematologic malignancy- no sign of bleeding, iron pending but B12 folate good, no sign of infection. Current Visit: Yes (2) Hypokalemia Status: Acute Current Visit: Yes (3) Microcytic hypochromic anemia Status: Acute Current Visit: Yes (4) Pelvic mass in female Status: Acute Current Visit: Yes (5) Leukocytosis Status: Acute Current Visit: Yes Hospitalist: Subjective Interval history: Mrs Kim has no complaints. Her cscope has been delayed to tomorrow because she is not clear yet. She says she does not ever want surgery for the mass in her abdomen even if it might be cancer. She says it has been there too long. Her goal is to get her anemia corrected, cscope completed and to return home. No focal complaints, no fever, no cough, no shortness of breath, no dysuria, no cellulitis. Exam - Constitutional Vitals: Period Temp Pulse Resp BP Sys/Stout Pulse Ox Last 24 Hr 98.2 F-100.4 F 70-91 16-20 87-116/50-70 93-100 General appearance: normal weight, no acute distress - Eye Eye exam: Present: EOMI. Absent: scleral icterus - Respiratory Respiratory exam: Present: clear to auscultation bilaterally - Cardiovascular Cardiovascular exam: Present: regular rate and rhythm - GI/Abdominal GI/Abdominal exam: Present: normal bowel sounds, mass, soft. Absent: tenderness - Extremities Exam Extremities exam: Absent: edema - Neurological Exam Neurological exam: Present: alert, oriented X3 - Skin Skin exam: Present: warm, dry Results - Labs CBC & BMP: 12/07/16 05:41 12/07/16 05:41 Lab Results: I have reviewed the past 24 hour labs
--- NOTE | 2016-12-07 13:58 | XRay Report ---
XR chest 1V portable Indication: Leukocytosis Comparison: None Technique: Single frontal view of the chest. Findings: Mild cardiomegaly. Opacification is demonstrated within the lateral right lung base in the left infrahilar region suspicious for pneumonia. There is probable small right pleural fluid. Visualized osseous and surrounding soft tissue structures demonstrate no acute abnormality. IMPRESSION: As above. PROCEDURE INTERPRETED AT [facility] DEPARTMENT OF RADIOLOGY Final Report Signed by: Dr Easton Reeves
[2016-12-07] MEDS: DESITIN 4OZ/NYSTATIN 15 GRAM MIXTURE PASTE TOP SCH ×2 (14:20→21:52)
[2016-12-08] MEDS: MEROPENEM 1,000 MG in SODIUM CHLORIDE 0.9% 100 ML IV SCH ×3 (01:23→16:08)
[2016-12-08] MEDS ORDERED: MAGNESIUM CITRATE 300 ML BOTTLE PO ONE (04:23)
[2016-12-08] MEDS: POTASSIUM CHLORIDE 20 MEQ/15 ML UDCUP PO SCH (07:23)
[2016-12-08] MEDS: SODIUM CHLORIDE 0.9% 1,000 ML IV SCH (07:23)
[2016-12-08] MEDS: PANTOPRAZOLE 40 MG VIAL IV SCH ×2 (08:03→20:28)
[2016-12-08] MEDS: DESITIN 4OZ/NYSTATIN 15 GRAM MIXTURE PASTE TOP SCH ×2 (08:07→20:25)
[2016-12-08 08:08] LABS: Basophils # 0.1 10*3/uL (0.0-0.2); Basophils % 0.4 % (0.0-0.8); Eosinophils # 0.1 10*3/uL (0.0-0.87); Eosinophils % 0.3 % (0.00-10.9); Hemoglobin 9.4 GM/DL (12.0-16.0); Immature Granulocytes % 1.3 %; Immature Granulocytes Absolute 0.28 #; Lymphocytes # 2.3 10*3/uL (1.4-4.0); Lymphocytes % 10.5 % (21.3-54.2); Mean Corpuscular HGB Conc 31.3 GM/DL (32-36); Mean Corpuscular Hemoglobin 26 PG (27-34); Mean Platelet Volume 10.9 FL (9.6-12.0); Monocytes # 0.8 10*3/uL (0.11-0.8); Monocytes % 3.4 % (1.7-12.7); Neutrophils # 18.6 10*3/uL (1.4-7.4); Neutrophils % 84.1 % (38.7-73.9); Platelet Count 349 T/CUMM (130-400); Red Blood Count 3.66 MC/CUMM (3.8-5.5); Red Cell Distribution Width 19.7 % (9.3-17.3); White Blood Count 22.1 T/CUMM (4-12)
[2016-12-08 08:30] LABS: Hypochromasia 1+; Lymphocytes 6 % (20-55); Microcytosis 1+; Platelet Estimate Normal; Segmented Neutrophils 92 % (50-85); Total Cells Counted 100
[2016-12-08 08:39] LABS: Alanine Aminotransferase < 6 U/L (13-56); Albumin 1.3 G/DL (3.4-5.0); Alkaline Phosphatase 107 U/L (45-117); Aspartate Amino Transferase 14 U/L (0-37); Bilirubin,Total < 0.39 MG/DL (0.2-1.0); Blood Urea Nitrogen 9 MG/DL (7-18); Calcium 7.7 MG/DL (8.5-10.1); Glucose 73 MG/DL (74-106); Potassium 3.9 MMOL/L (3.5-5.1); Sodium 143 MMOL/L (136-145); Total Protein 6.3 G/DL (6.4-8.3)
[2016-12-08] MEDS ORDERED: PROPOFOL 200 MG/20 ML VIAL IV ONE (09:36)
[2016-12-08] MEDS ORDERED: LIDOCAINE 2% 5 ML VIAL ONE (09:36)
--- NOTE | 2016-12-08 09:36 | History and Physical Update ---
History and Physical Update - Physical Exam Mental Status: alert and oriented Heart: regular rate and rhythm Lung: clear to auscultation Abdomen: within normal limits Vitals: within normal limits
--- NOTE | 2016-12-08 09:58 | Operative Note ---
Date of procedure: 12/08/16 Pre-op diagnosis: Iron deficiency anemia Procedure: Colonoscopy with polypectomy 71-year-old female with iron deficiency anemia now for colonoscopy to Informed consent was obtained the patient She was sedated with general anesthesia per anesthesia protocol. Patient was placed in the left lateral decubitus position digital exam was normal the Olympus flexible video colonoscope was inserted into the anal canal advanced under direct vision level of cecum. Withdrawal time 9 minutes Prep fair Findings: Cecum-normal identified by ileocecal valve and appendiceal orifice Ascending: Normal exam limited by prep Transverse colon single 6 mm polyp hot biopsy fulgurated exam limited by prep Descending: Diverticulosis exam limited by prep Sigmoid colon diverticulosis and single 6 mm polyp hot biopsy fulgurated exam limited by prep Rectum-normal to direct and retroflexed views. The procedure terminated placed our procedure well she is discharge recovery in good condition. Postop diagnosis: 1. Diverticulosis coli-maintain adequate fiber and fluid intake 2. Colon polyps follow-up pathology plan repeat colonoscopy in 3 years with less than ideal prep 3. 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 Anesthesia: none (General) Surgeon / Physician: Douglas Burgos Estimated blood loss: none Specimens: other (1. Transverse polyp #2 sigmoid polyp) Condition: stable Disposition: post procedure unit Results - Labs CBC & BMP: 12/08/16 07:33 12/08/16 07:33 Discharge Plan - Discharge Medications No Action No Known Home Medications [No Known Home Medications] - Follow Up or Referral - Forms/Instructions
--- NOTE | 2016-12-08 10:04 | Anesthesia Post-Op ---
Anesthesia Post OP - Post Ansesthetic Evaluation Patient seen in post op: Yes Resp: within normal limits CV: within normal limits Mental: within normal limits Temp: within normal limits Njax-Cm-Eghqzrbkt: within normal limits Nausea and Vomiting: within normal limits Pain: within normal limits
--- NOTE | 2016-12-08 15:08 | Hospitalist Progress Note ---
Assessment and Plan (1) Anemia Status: Acute Assessment and plan: 1)anemia- EGD looked ok, cscope with diverticuli, polyps, no source of bleeding. Small bowel series tomorrow. Her H&H had predicted increase in hgb after 2 u PRBCs. She has seen no bleeding from rectum, in stool, melena, hematuria, epistaxis, hematemesis, or vaginal bleeding. She has a pelvic mass and Dr Rich recommends referral to [facility] at discharge. CA19-9 elevated, CEA normal, CA125 has not returned from [place] yet. She denies ever having vaginal bleeding, however, she is not a good historian. She does not want to see a fire control technician b onc specialist or have anything done about the mass. 2)GNR in blood- ID pending, only 1 of 2 cultures positive. On Merrem. WBC remains high. Bcx still not identified, just marked GNR. CXR shows infiltrate lat right base and left infrahilar region suspicious for pneumonia- she denies cough or shortness of breath. continue Merrem for now, monitor. Afebrile. 3)hypokalemia- replacing again. 4)leukocytosis, anemia- consider hematologic malignancy- no sign of bleeding, iron pending but B12 folate good, no sign of infection other than inf on CXR. 5)dispo- swing bed referral made today by CM. Current Visit: Yes (2) Hypokalemia Status: Acute Current Visit: Yes (3) Microcytic hypochromic anemia Status: Acute Current Visit: Yes (4) Pelvic mass in female Status: Acute Current Visit: Yes (5) Leukocytosis Status: Acute Current Visit: Yes Hospitalist: Subjective Interval history: Mrs Kim says the cscope went well. Her sister asks for a referral to swing bed as she has not walked in about a month. PT is seeing her. She and her sister say she does not want any surgery on her pelvic mass even if it might be cancer because they live far away, and when I offered referral to a closer center, they did not want to pursue it. She maintains that she does not have vaginal bleeding. Small bowel series pending. Exam - Constitutional Vitals: Period Temp Pulse Resp BP Sys/Stout Pulse Ox Last 24 Hr 97.3 F-98.9 F 68-85 13-18 85-135/49-071 95-100 General appearance: normal weight, no acute distress - Eye Eye exam: Present: EOMI. Absent: scleral icterus - Respiratory Respiratory exam: Present: clear to auscultation bilaterally - Cardiovascular Cardiovascular exam: Present: regular rate and rhythm - GI/Abdominal GI/Abdominal exam: Present: normal bowel sounds, mass, soft - Extremities Exam Extremities exam: Absent: edema Results - Labs CBC & BMP: 12/08/16 07:33 12/08/16 07:33 Lab Results: I have reviewed the past 24 hour labs
[2016-12-09] MEDS: MEROPENEM 1,000 MG in SODIUM CHLORIDE 0.9% 100 ML IV SCH ×2 (00:23→08:06)
[2016-12-09] MEDS: PANTOPRAZOLE 40 MG VIAL IV SCH ×2 (08:06→21:50)
[2016-12-09] MEDS: DESITIN 4OZ/NYSTATIN 15 GRAM MIXTURE PASTE TOP SCH ×2 (08:07→21:57)
--- NOTE | 2016-12-09 11:42 | Gastrointestinal Progress Note ---
<VirginieMichelle Kamari - Last Filed: 12/09/16 11:40> Assessment and Plan (1) Anemia Status: Acute Assessment and plan: 12/09-CT scan results noted as below. H&H stable. Small bowel follow-through results are pending at this time. Plan an addendum to followed by Dr. Burgos. 12/07-normal EGD on yesterday with no findings for source of anemia. H&H stable 11/13.2 units packed red blood cells and yesterday. No reported overt bleeding. Colonoscopy prep was not completed on yesterday therefore continue today and attempt colonoscopy tomorrow. Plan an addendum to followed by Dr. Burgos Current Visit: Yes Gastroenterology - PN: Subj Interval history: CC: Anemia Patient is seen in radiology during small bowel follow-through exam. Results are still pending at this time. No signs of overt bleeding. H&H is stable at . WBCs at 22,000. Patient is noted to run a low-grade temp earlier this morning at 9.8. Abdomen is without tenderness. She has no complaints of nausea vomiting. C scope findings on yesterday noted as diverticulosis, colon polyps with pathology pending and no clear source for her iron deficiency anemia. ROS: Denies shortness breath or chest pain Exam (Progress Note) - Constitutional Vitals: Period Temp Pulse Resp BP Sys/Stout Pulse Ox Last 24 Hr 97.6 F-99.8 F 68-83 16-18 100-117/53-67 98-99 General appearance: normal weight, no acute distress - Head Head exam: Present: normal inspection, normocephalic - Eye Eye exam: Present: other (Lids and conjunctivae are unremarkable). Absent: scleral icterus - ENT ENT exam: Present: normal exam, normal oropharynx - Neck Neck exam: Present: normal inspection - Respiratory Respiratory exam: Present: clear to auscultation bilaterally. Absent: rales, rhonchi, wheezes - Cardiovascular Cardiovascular exam: Present: regular rate and rhythm. Absent: diastolic murmur , JVD, systolic murmur - GI/Abdominal GI/Abdominal exam: Present: normal bowel sounds, tenderness, soft. Absent: ascites, distended, mass, organomegaly - Extremities Exam Extremities exam: Present: normal inspection, full ROM - Back Exam Back exam: Present: normal inspection - Neurological Exam Neurological exam: Present: alert, oriented X3 - Psychiatric Psychiatric exam: Present: normal affect, normal mood - Skin Skin exam: Present: normal color, warm, dry Results - Labs CBC & BMP: 12/08/16 07:33 12/08/16 07:33 Lab Results: I have reviewed the past 24 hour labs <Douglas Burgos - Last Filed: 12/09/16 21:12> Assessment and Plan (1) Microcytic hypochromic anemia Status: Acute Current Visit: Yes (2) Pelvic mass in female Status: Acute Current Visit: Yes Exam (Progress Note) - Constitutional Vitals: Period Temp Pulse Resp BP Sys/Stout Pulse Ox Last 24 Hr 97.6 F-99.8 F 68-92 16-18 99-112/57-67 98-99 Results - Labs CBC & BMP: 12/09/16 13:37 12/08/16 07:33
--- NOTE | 2016-12-09 13:21 | Pathology Report from [facility] ---
[facility] ACCESSION # : [id number] PATIENT NAME : Penny Quiroz ORDERING DR : KEV BLUNT MD CLINICAL HX: Anemia POST-OP DX: #1 Polyp #2 Polyp SPECIMEN INFO: #1 Transverse colon polyp #2 Rectum polyp GROSS DESCRIPTION: #1 Received in formalin labeled with the patients name PENNY QUIROZ and #1 consists of a 0.2 x 0.2 cm narvaez tissue fragment. Submitted in cassette #1.#2 Received in formalin labeled with the patients name PENNY QUIROZ and #2 consists of a 0.3 x 0.2 cm narvaez tissue fragment. Submitted in cassette #2. DIAGNOSIS FOR PENNY QUIROZ: #1 TRANSVERSE COLON POLYP, BIOPSY: Tubular adenoma.#2 RECTUM POLYP, BIOPSY: Hyperplastic polyp. COLLECTED DATE: 12/08/2016 [facility] REPORT DATE: 12/09/2016 ELECTRONICALLY SIGNED BY: Maya Segura M.D. 12/09/2016 - 10:54:00 CHIKA
[2016-12-09 13:44] LABS: Basophils # 0.1 10*3/uL (0.0-0.2); Basophils % 0.3 % (0.0-0.8); Eosinophils # 0.1 10*3/uL (0.0-0.87); Eosinophils % 0.4 % (0.00-10.9); Hematocrit 28.2 VOL% (35.7-47.0); Hemoglobin 8.9 GM/DL (12.0-16.0); Immature Granulocytes % 1.2 %; Immature Granulocytes Absolute 0.22 #; Lymphocytes # 2.3 10*3/uL (1.4-4.0); Lymphocytes % 12.4 % (21.3-54.2); Mean Corpuscular HGB Conc 31.6 GM/DL (32-36); Mean Corpuscular Hemoglobin 26 PG (27-34); Mean Corpuscular Volume 82.7 FL (87-102); Monocytes # 0.7 10*3/uL (0.11-0.8); Monocytes % 3.9 % (1.7-12.7); Neutrophils # 15.2 10*3/uL (1.4-7.4); Neutrophils % 81.8 % (38.7-73.9); Platelet Count 332 T/CUMM (130-400); Red Blood Count 3.41 MC/CUMM (3.8-5.5); White Blood Count 18.6 T/CUMM (4-12)
--- NOTE | 2016-12-09 16:26 | Hospitalist Progress Note ---
Assessment and Plan (1) Anemia Status: Acute Assessment and plan: s/p EGD-normal. C scope findings showed diverticulosis, colon polyps with pathology pending and no clear source for her iron deficiency anemia. She had a small bowel cliien-haijnrk-xipkiep are pending. Current Visit: Yes (2) Pelvic mass in female Status: Acute Assessment and plan: s/p colon biopsy showing tubular adenoma and rectal biopsy hyperplastic polyp Current Visit: Yes (3) Gram-negative bacteremia Status: Acute Assessment and plan: BC grew negative rods. Plan Continue IV meropenem. Current Visit: Yes (4) Microcytic hypochromic anemia Status: Acute Assessment and plan: stable. Current Visit: Yes Hospitalist: Subjective Interval history: Patient had a small bowel follow-through today, results are pending. Exam - Constitutional Vitals: Period Temp Pulse Resp BP Sys/Stout Pulse Ox Last 24 Hr 97.6 F-99.8 F 68-77 16-18 100-115/57-67 98-99 General appearance: no acute distress - Head Head exam: Present: normal inspection - Respiratory Respiratory exam: Present: clear to auscultation bilaterally - Cardiovascular Cardiovascular exam: Present: regular rate and rhythm - GI/Abdominal GI/Abdominal exam: Present: normal bowel sounds - Extremities Exam Extremities exam: Present: normal inspection Results - Labs CBC & BMP: 12/09/16 13:37 12/08/16 07:33 Lab Results: I have reviewed the past 24 hour labs
[2016-12-09] MEDS: MEROPENEM 1,000 MG in SODIUM CHLORIDE 0.9% 50 ML IV SCH (17:45)
--- NOTE | 2016-12-09 19:28 | Fluoroscopy Report ---
Small bowel series. Indication: Iron deficiency anemia. Brine Maker radiograph was obtained which demonstrates a very large mass effect consistent with a large tumor seen on CT. The patient was able to swallow the barium and water mixture without difficulty. The gastric size is normal. There may be gastric fold thickening, the stomach is not well-distended on this exam. No gastric outlet obstruction. Almost all of the small intestine is located in the left abdomen, due to the mass effect. The fold thickness is appropriate. No dilatation of small intestine. No diverticular formation. No flocculation of contrast. At 2 hours, the contrast is seen within a normal loop of small intestine which is crossing over the mass. Very slowly, the cecum filled over the next several hours. The terminal ileum presents a normal appearance. The colon is not dilated. It is located in the right abdomen. Impression: The bowel is malpositioned due to the large mass effect in the abdomen, but otherwise appears normal. There is some delay of emptying into the colon. Note that there may be gastric fold thickening present, the stomach is not well distended. PROCEDURE INTERPRETED AT [facility] DEPARTMENT OF RADIOLOGY Final Report Signed by: Dr. Malika Mancia
[2016-12-10] MEDS: MEROPENEM 1,000 MG in SODIUM CHLORIDE 0.9% 50 ML IV SCH ×3 (01:14→16:27)
[2016-12-10 09:11] LABS: Basophils # 0.1 10*3/uL (0.0-0.2); Basophils % 0.4 % (0.0-0.8); Eosinophils # 0.1 10*3/uL (0.0-0.87); Eosinophils % 0.6 % (0.00-10.9); Hematocrit 29.1 VOL% (35.7-47.0); Hemoglobin 9.1 GM/DL (12.0-16.0); Immature Granulocytes % 1.3 %; Immature Granulocytes Absolute 0.25 #; Lymphocytes # 2.7 10*3/uL (1.4-4.0); Lymphocytes % 13.8 % (21.3-54.2); Mean Corpuscular HGB Conc 31.3 GM/DL (32-36); Mean Corpuscular Hemoglobin 26 PG (27-34); Mean Corpuscular Volume 82.7 FL (87-102); Mean Platelet Volume 9.6 FL (9.6-12.0); Monocytes # 0.8 10*3/uL (0.11-0.8); Monocytes % 4.1 % (1.7-12.7); Neutrophils # 15.5 10*3/uL (1.4-7.4); Neutrophils % 79.8 % (38.7-73.9); Platelet Count 348 T/CUMM (130-400); Red Blood Count 3.52 MC/CUMM (3.8-5.5); Red Cell Distribution Width 20.4 % (9.3-17.3); White Blood Count 19.4 T/CUMM (4-12)
[2016-12-10] MEDS: DESITIN 4OZ/NYSTATIN 15 GRAM MIXTURE PASTE TOP SCH ×2 (09:18→20:27)
[2016-12-10] MEDS: PANTOPRAZOLE 40 MG VIAL IV SCH ×2 (09:18→20:25)
--- NOTE | 2016-12-10 12:02 | Infectious Disease Consult ---
Assessment and Plan (1) Gram-negative bacteremia Status: Acute Assessment and plan: Cause unclear, could be related to pelvic mass. UA was negative for infection on admission but she has had a Dickson catheter since then and urine looks quite cloudy today. Recommendations: I agree with empiric meropenem. Will repeat blood cultures; will also do urinalysis with reflex to culture given the appearance of the urine today. Thank you very much for the consult. Will follow. Discussed with sister at bedside Current Visit: Yes (2) Leukocytosis Status: Acute Assessment and plan: Probably multifactorial with contributions including the bacteremia as well as a pelvic mass. Will monitor. Current Visit: Yes (3) Pelvic mass in female Status: Acute Current Visit: Yes History of Present Illness Chief complaint: Positive blood culture, leukocytosis History of present illness: Ms. Kim is a 71 year old female who has been in declining health over the past month. She lives with her sister and is known to have a pelvic mass however has declined surgical intervention for this. She continued to decline over the past few weeks not been able to walk around and barely eating as her sister brought her to the hospital. She has not had any fever since being here but has had persisting severe leukocytosis. She was to go to swing bed however blood culture from admission 1 of 2 sets came up positive for gram-negative rods and so I am asked to assist with management. Patient really did not have any specific complaints but she was a poor historian as well as her sister. Home Medications Medication Instructions Recorded Confirmed Type No Known Home Medications [No 12/04/16 12/04/16 History Known Home Medications] Allergies Allergy/AdvReac Type Severity Reaction Status Date / Time No Known Allergies Allergy Verified 12/04/16 05:31 ROS unobtainable: due to mental status Medical,Surgical,& Family Hx - Medical History Neurology: No history of: Seizures Endocrine: History of: Diabetes Mellitus (IDDM), Diabetes Mellitus (NIDDM) - Surgical History Abdominal Surgeries: Patient denies: Abdominal Surgery - Family History Family History: Reports;: Family Hypertension - Social History Smoking Status: Never smoker Frequency of Alcohol Use: None Type of Drug Use: None Infectious Disease Exam H&P - Constitutional Vitals: Vital Signs Temp Pulse Resp BP Pulse Ox 98.5 F 75 14 116/61 99 12/10/16 07:05 12/10/16 07:05 12/10/16 07:40 12/10/16 07:05 12/10/16 07:05 Intake and Output 12/09/16 12/10/16 12/10/16 23:59 07:59 15:59 Intake Total 410 / 410 50 / 50 Output Total 375 / 375 500 / 500 Balance 35 / 35 -450 / -450 Intake: IV 50 / 50 50 / 50 Merrem 1,000 mg In Ns 50 50 / 50 50 / 50 ml @ 100 mls/hr IV Q8H [facility] Rx#:[id number] Oral 360 / 360 Output: Urine 375 / 375 500 / 500 Stool 0 / 0 Other: Voiding Method Indwelling Catheter Indwelling Catheter # Bowel Movements 0 Exam: General: Patient comfortable, nontoxic appearing HEENT: Mucous membranes pink and moist, anicteric acyanotic, HERNAN, no oral exudates Neck: Supple, no thyroid gland enlargement Respiratory system: Breath sounds vesicular, no crepitations or wheezes Cardiovascular: Normal S1 and S2, no murmurs appreciated Abdomen: Normal bowel sounds, soft nontender throughout, no organomegaly or mass Genitourinary: Extremely large, hard, nontender mass extending from pelvis all the way above the umbilicus, cloudy urine from Dickson catheter Extremities: no edema Skin: No rash Reports - Labs CBC & BMP: 12/10/16 09:02 12/08/16 07:33 Labs: Laboratory Results - last 24 hr 12/09/16 12/10/16 13:37 09:02 WBC 18.6 H 19.4 H RBC 3.41 L 3.52 L Hgb 8.9 L 9.1 L Hct 28.2 L 29.1 L MCV 82.7 L 82.7 L MCH 26 L 26 L MCHC 31.6 L 31.3 L RDW 20.0 H 20.4 H Plt Count 332 348 MPV 10.0 9.6 Neut % (Auto) 81.8 H 79.8 H Lymph % (Auto) 12.4 L 13.8 L [place] % (Auto) 3.9 4.1 Eos % (Auto) 0.4 0.6 Baso % (Auto) 0.3 0.4 Neut # (Auto) 15.2 H 15.5 H Lymph # (Auto) 2.3 2.7 [place] # (Auto) 0.7 0.8 Eos # (Auto) 0.1 0.1 Baso # (Auto) 0.1 0.1 Immature Gran % 1.2 1.3 Nucleated RBC % 0.0 0.0 Immature Gran # 0.22 0.25 Nucleated RBCs # 0.00 0.00 Immature Plt Fraction 0.0 0.0 Specialty Discharge - Follow Up or Referrals
--- NOTE | 2016-12-10 15:03 | Hospitalist Progress Note ---
Assessment and Plan - Time spent with patient Time spent with patient: Less than 30 minutes (1) Microcytic hypochromic anemia Status: Acute Assessment and plan: 71-year-old -[place] female with known pelvic mass admitted by the hospitalist on 12/03/2016 with abdominal distention and pain with decreased debility. Patient's family stated that as a child the doctor told her she was "slow". Patient has received a total of 5 units of blood. She is being followed by Dr. Burgos from GI. Her EGD was normal and C scope findings showed diverticulosis and colon polyps with pathology showing tubular adenoma. Small bowel follow-through shows some delay in emptying of the colon due to malposition due to the mass but otherwise it is normal. Her CT scan shows a 26 x 19 x 21 cm intra-abdominal and intrapelvic mass that most likely arises from the uterus or ovaries. Dr. Burgos feels that her anemia arises from her gynecological issues and recommends continued iron replacement treatment. Dr. Becker had been consulted and recommended surgical oncology. Patient is refusing surgery on this mass. Patient was being transferred to swing bed today but labs obtained show white count which was initially going down now risen back up to 19.6. Dr. Zhao was consulted to assist. Patient' s Dickson was to be removed today but it does look cloudy so we will get a UA on this before its DC'd. Dr. Epps recommends continuing empiric meropenem and repeating blood cultures and follow-up UA. Will keep patient through the weekend on antibiotics and continue to monitor. May be to [place] on Tuesday if white count is improved. Dr. Cruz will see and examine patient and further recommendations to follow. Current Visit: Yes (2) Pelvic mass in female Status: Acute Current Visit: Yes (3) Gram-negative bacteremia Status: Acute Current Visit: Yes Hospitalist: Subjective Interval history: Patient is smiling and happy and has no complaints. Exam - Constitutional Vitals: Period Temp Pulse Resp BP Sys/Stout Pulse Ox Last 24 Hr 97.6 F-99.0 F 73-92 14-20 99-117/53-64 94-99 Exam: 71-year-old -[place] female, no acute distress, alert and oriented Chest clear CV regular rate and rhythm Abdomen soft nontender Extremities with mild edema Results - Labs CBC & BMP: 12/10/16 09:02 09/20/17 07:33 Lab Results: I have reviewed the past 24 hour labs Specialty Discharge - Follow Up or Referrals
[2016-12-10 15:37] LABS: Apearance,Urine Slightly Hazy (Clear); Bacteria,Urine Occasional /HPF (Few); Bilirubin,Urine Negative (Negative); Blood, Urine Large mg/dL (Negative); Glucose,Urine (UA) 50 mg/dL (Negative); Ketones,Urine Negative (Negative); Mucus,Urine Many /LPF (Occasional); Nitrite,Urine Negative (Negative); Protein,Urine 30 MG/DL; RBC,Urine 143 /HPF (0-4); Squamous Epithelial Cell,Urine Occasional /HPF (0-10); Urine Color Yellow (Yellow); Urine Specific Gravity 1.019 (1.001-1.035); WBC,Urine 21 /HPF (0-6)
[2016-12-11 06:00] LABS: Basophils # 0.1 10*3/uL (0.0-0.2); Basophils % 0.4 % (0.0-0.8); Eosinophils # 0.2 10*3/uL (0.0-0.87); Eosinophils % 1.1 % (0.00-10.9); Hematocrit 26.9 VOL% (35.7-47.0); Hemoglobin 8.4 GM/DL (12.0-16.0); Immature Granulocytes Absolute 0.16 #; Lymphocytes # 2.6 10*3/uL (1.4-4.0); Lymphocytes % 16.5 % (21.3-54.2); Mean Corpuscular HGB Conc 31.2 GM/DL (32-36); Mean Corpuscular Hemoglobin 26 PG (27-34); Mean Corpuscular Volume 82.8 FL (87-102); Monocytes # 0.7 10*3/uL (0.11-0.8); Monocytes % 4.4 % (1.7-12.7); Neutrophils # 12.1 10*3/uL (1.4-7.4); Neutrophils % 76.6 % (38.7-73.9); Platelet Count 343 T/CUMM (130-400); Red Blood Count 3.25 MC/CUMM (3.8-5.5); Red Cell Distribution Width 20.6 % (9.3-17.3); White Blood Count 15.9 T/CUMM (4-12)
[2016-12-11 06:46] LABS: Calcium 7.6 MG/DL (8.5-10.1); Osmolality,Calculated 284.8 MOS/KG (273-304); Potassium 3.1 MMOL/L (3.5-5.1)
[2016-12-11] MEDS: PANTOPRAZOLE 40 MG VIAL IV SCH ×2 (08:22→21:13)
[2016-12-11] MEDS: MEROPENEM 1,000 MG in SODIUM CHLORIDE 0.9% 50 ML IV SCH ×3 (08:22→16:59)
[2016-12-11] MEDS: DESITIN 4OZ/NYSTATIN 15 GRAM MIXTURE PASTE TOP SCH ×2 (08:23→21:17)
--- NOTE | 2016-12-11 10:49 | Hospitalist Progress Note ---
Assessment and Plan (1) Anemia Status: Acute Assessment and plan: s/p EGD-normal. C scope findings showed diverticulosis, colon polyps with pathology pending and no clear source for her iron deficiency anemia. She had a small bowel bxfnex-zemlwul-sbtzkoh noted Current Visit: Yes (2) Pelvic mass in female Status: Acute Assessment and plan: s/p colon biopsy showing tubular adenoma and rectal biopsy hyperplastic polyp Current Visit: Yes (3) Gram-negative bacteremia Status: Acute Assessment and plan: BC grew negative rods. Plan Continue IV meropenem. Follow ID's recommendations Current Visit: Yes (4) Microcytic hypochromic anemia Status: Acute Assessment and plan: stable. Current Visit: Yes (5) UTI (urinary tract infection) Status: Acute Assessment and plan: UC grew yeast. Start IV Diflucan Current Visit: Yes (6) Hypokalemia Status: Acute Assessment and plan: will replete.Check Mg level. Current Visit: Yes Hospitalist: Subjective Interval history: Patient seen this am. Urine grew yeast.Appreciates ID's recommendations. Exam - Constitutional Vitals: Period Temp Pulse Resp BP Sys/Stout Pulse Ox Last 24 Hr 97.6 F-99.3 F 75-88 16-20 105-129/53-71 94-100 General appearance: no acute distress, morbidly obese - Head Head exam: Present: normal inspection - Respiratory Respiratory exam: Present: clear to auscultation bilaterally - Cardiovascular Cardiovascular exam: Present: regular rate and rhythm - GI/Abdominal GI/Abdominal exam: Present: normal bowel sounds Results - Labs CBC & BMP: 12/11/16 05:26 12/11/16 05:26 Lab Results: I have reviewed the past 24 hour labs Specialty Discharge - Follow Up or Referrals
[2016-12-11] MEDS ORDERED: POTASSIUM CHLORIDE 20 MEQ/15 ML UDCUP PO ONE (10:50)
[2016-12-11] MEDS: FLUCONAZOLE INJ 200 MG in PREMIX 1 EACH IV SCH (11:24)
[2016-12-12] MEDS: MEROPENEM 1,000 MG in SODIUM CHLORIDE 0.9% 50 ML IV SCH ×3 (00:41→17:31)
[2016-12-12] MEDS: DESITIN 4OZ/NYSTATIN 15 GRAM MIXTURE PASTE TOP SCH ×2 (09:13→21:14)
[2016-12-12] MEDS: PANTOPRAZOLE 40 MG VIAL IV SCH ×2 (09:13→21:10)
[2016-12-12] MEDS: FLUCONAZOLE INJ 200 MG in PREMIX 1 EACH IV SCH (11:03)
--- NOTE | 2016-12-12 11:32 | Hospitalist Progress Note ---
Assessment and Plan (1) Anemia Status: Acute Assessment and plan: s/p EGD-normal. C scope findings showed diverticulosis, colon polyps with pathology pending and no clear source for her iron deficiency anemia. She had a small bowel xtyooi-eiykrgo-rymbcnp noted. We give Fe supplements, follow cbc in am. Current Visit: Yes (2) Pelvic mass in female Status: Acute Assessment and plan: s/p colon biopsy showing tubular adenoma and rectal biopsy hyperplastic polyp Current Visit: Yes (3) Gram-negative bacteremia Status: Acute Assessment and plan: BC grew negative rods. Repeat BC was negative Plan Continue IV meropenem. Follow ID's recommendations Current Visit: Yes (4) Microcytic hypochromic anemia Status: Acute Assessment and plan: start Fe supplements Current Visit: Yes (5) UTI (urinary tract infection) Status: Acute Assessment and plan: UC grew yeast. Continue IV Diflucan Current Visit: Yes (6) Hypokalemia Status: Acute Assessment and plan: will replete both potassium and Mg Current Visit: Yes Hospitalist: Subjective Interval history: Patient seen this am, no new problems. We are hoping to dc her to a [place] soon. Exam - Constitutional Vitals: Period Temp Pulse Resp BP Sys/Stout Pulse Ox Last 24 Hr 98.2 F-99.7 F 71-89 16-20 103-125/59-69 95-99 General appearance: no acute distress, morbidly obese - Head Head exam: Present: normal inspection - Respiratory Respiratory exam: Present: decreased breath sounds - Cardiovascular Cardiovascular exam: Present: regular rate and rhythm - GI/Abdominal GI/Abdominal exam: Present: normal bowel sounds - Extremities Exam Extremities exam: Present: other (no edema) Results - Labs CBC & BMP: 12/11/16 05:26 12/11/16 05:26 Lab Results: I have reviewed the past 24 hour labs Specialty Discharge - Follow Up or Referrals
[2016-12-12] MEDS ORDERED: POTASSIUM CHLORIDE 20 MEQ TABLET PO ONE (11:33)
[2016-12-12] MEDS ORDERED: MAGNESIUM SULF RIDER 2 GM in PREMIX 1 EACH IV ONE (11:33)
[2016-12-12] MEDS ORDERED: DOCUSATE SODIUM 100 MG CAPSULE PO PRN (11:34)
[2016-12-12] MEDS: IRON (CARBONYL) 45 MG TABLET PO SCH ×2 (12:29→21:10)
[2016-12-13] MEDS: MEROPENEM 1,000 MG in SODIUM CHLORIDE 0.9% 50 ML IV SCH ×2 (01:00→08:21)
[2016-12-13 06:08] LABS: Basophils % 0.3 % (0.0-0.8); Eosinophils # 0.2 10*3/uL (0.0-0.87); Eosinophils % 1.8 % (0.00-10.9); Hematocrit 26.3 VOL% (35.7-47.0); Hemoglobin 8.2 GM/DL (12.0-16.0); Immature Granulocytes % 0.9 %; Immature Granulocytes Absolute 0.11 #; Lymphocytes # 2.9 10*3/uL (1.4-4.0); Lymphocytes % 24.2 % (21.3-54.2); Mean Corpuscular HGB Conc 31.2 GM/DL (32-36); Mean Corpuscular Hemoglobin 26 PG (27-34); Monocytes # 0.5 10*3/uL (0.11-0.8); Monocytes % 4.4 % (1.7-12.7); Neutrophils # 8.1 10*3/uL (1.4-7.4); Neutrophils % 68.4 % (38.7-73.9); Platelet Count 354 T/CUMM (130-400); Red Blood Count 3.17 MC/CUMM (3.8-5.5); Red Cell Distribution Width 21.2 % (9.3-17.3); White Blood Count 11.9 T/CUMM (4-12)
[2016-12-13 06:44] LABS: Calcium 7.6 MG/DL (8.5-10.1); Osmolality,Calculated 278.3 MOS/KG (273-304); Potassium 3.6 MMOL/L (3.5-5.1)
[2016-12-13] MEDS: PANTOPRAZOLE 40 MG VIAL IV SCH ×2 (08:21→21:18)
[2016-12-13] MEDS: DESITIN 4OZ/NYSTATIN 15 GRAM MIXTURE PASTE TOP SCH ×2 (08:22→21:19)
[2016-12-13] MEDS: IRON (CARBONYL) 45 MG TABLET PO SCH ×2 (08:22→21:19)
--- NOTE | 2016-12-13 08:45 | Discharge Summary ---
<Homero Davis - Last Filed: 12/13/16 09:33> Hospital Course - Hospital Course Hospital Course: Ms. Kim is a 71 yr female that was transferred to our facility from [facility] on 12/03 for further evaluation of an abdominal mass and elevated WBC and anemia. Pt. presented to the outside facility for complaints of weakness after being bedridden for several months and abdominal pain. Pt was noted to have a large, hard mass in the RLQ as well as central abdomen. Pt. was transferred to our facility for a higher level of care. Pt. was admitted for further evaluation and treatment. Pt. has had a lengthy stay totalling 10 days. Pt. has been seen by several services : General Surgery, [facility] [employer], GI, and Infectious disease. Initial CT abdomen and pelvis revealed a 'large intra- abdominal intrapelvic mass' which was a concern for possible cancer. General surgery saw briefly but signed off as the mass appeared to be ob gyn physician assistant related. OB/ COMPOSITE WORKER evaluated patient and cancer biomarkers were ordered. CA 19-9 and CA 125 were 62.5 and 34 respectively. It was recommendation of the patient be referred to COMPOSITE WORKER oncology when she is discharged. GI was consulted to see patient for her microcytic anemia. On admission, patient's h&h was 4.6 and 14.9. Pt. denied any lawanda bleeding. Pt. received several units of PRBCs (5) during stay and h&h stabilized. Patient also underwent EGD on 12/06 and was found to be normal. C scope revealed diverticulosis and colon polyps with pathology showing tubular adenoma. Their recommendation was to continue with iron replacement and continue to ob gyn physician assistant/onc eval. They signed off as well. Infectious disease was consulted to evaluate patient because blood culture returned positive for gram negative rods. UA was positive for yeast. Even after treatment with Meropenem, pt was noted to have grossly elevated WBCs. Pt. was continued on IV antibiotics and blood cultures were repeated. Repeat BC-no growth, UC grew yeast and she was placed on Diflucan.WBC improved to 11.9.Pt.'s condition has stabilized and she is stable for transfer for a swingbed. Further instruction to follow per Dr. Braden. Specialty Discharge - Follow Up or Referrals Discharge Plan - Discharge Data Disposition: Swing Bed, Hos Based, [facility] - Discharge Medications New Docusate Sodium Cap [Colace Cap] 100 mg PO BID PRN capsule PRN Reason: Constipation Hydrocodone/Acetaminophen [[place] 10-325 Tablet] 1 each PO Q6-8H PRN #20 tablet PRN Reason: Abdominal Pain Iron (Carbonyl) [Feosol Natural Release Tab] 45 mg PO BID tablet Acetaminophen Tab [Tylenol Tab] 325 mg PO Q4H PRN tablet PRN Reason: fever, headache/body aches Fluconazole Tab [Diflucan Tab] 100 mg PO Q7DAY #7 tablet Levofloxacin Tab [Levaquin Tab] 500 mg PO DAILY #7 tablet - Follow Up or Referral - Forms/Instructions Instructions: Anemia (DC) Exam - Constitutional Vitals: Period Temp Pulse Resp BP Sys/Stout Pulse Ox Last 24 Hr 97.5 F-99.6 F 70-83 18-20 114-127/62-73 95-100 Discharge Results Procedures and tests throughout hospitalization: Pending Orders 12/03/16 22:50 Blood Culture Stat 12/05/16 15:58 Occult Blood, Stool Routine 12/10/16 12:33 Blood Culture Stat Labs on day of discharge: Labs from last 24 hours 12/13/16 12/13/16 12/13/16 05:54 05:54 05:54 WBC 11.9 RBC 3.17 L Hgb 8.2 L Hct 26.3 L MCV 83.0 L MCH 26 L MCHC 31.2 L RDW 21.2 H Plt Count 354 MPV 10.0 Neut % (Auto) 68.4 Lymph % (Auto) 24.2 [place] % (Auto) 4.4 Eos % (Auto) 1.8 Baso % (Auto) 0.3 Neut # (Auto) 8.1 H Lymph # (Auto) 2.9 [place] # (Auto) 0.5 Eos # (Auto) 0.2 Baso # (Auto) 0.0 Immature Gran % 0.9 Nucleated RBC % 0.0 Immature Gran # 0.11 Nucleated RBCs # 0.00 Immature Plt Fraction 0.0 Sodium 141 Potassium 3.6 Chloride 106 Carbon Dioxide 29 Anion Gap 9.6 BUN 10 Creatinine 0.30 L GFR Calculation 132 BUN/Creatinine Ratio 33.00 H Glucose 81 Calculated Osmolality 278.3 Calcium 7.6 L Magnesium 1.8 Preliminary micro results at discharge 12/10/16 12:33 Blood Culture - Preliminary Blood No growth at 1 day 12/10/16 12:33 Blood Culture - Preliminary Blood No growth at 1 day 12/03/16 22:50 Blood Culture - Preliminary Blood Gram Negative Rods DS: Provider Date of admission: 12/03/16 22:23 Primary care physician: . No PCP Attending physician on admission: Tj Sales MD Consults: 12/04/16 16:52 Consult to Physician [CONS] Routine Comment: severe anemia; history of advil use; suspect GIB Consulting Provider: Douglas Burgos When should Consulting Provider be notified: Now Person Notified: Dr Burgos Date Notified: 12/04/16 Time Notified: 17:51 Consult Notification Comment: Will see patient in AM. 12/04/16 16:53 Consult to Physician [CONS] Routine Comment: 24.5cm abd mass; possible peritonitis Consulting Provider: Obie De Luna When should Consulting Provider be notified: Now Person Notified: Dr De Luna Date Notified: 12/04/16 Time Notified: 16:15 Consult Notification Comment: Dr De Luna has seen patient 12/05/16 10:34 Consult to Occupational Therapy [CONS] Routine Reason for Occupational Therapy: Evaluate and Treat Consult to Physical Therapy [CONS] Routine Reason for Physical Therapy: Evaluate and Treat 12/05/16 11:20 Consult to Physician [CONS] Routine Comment: Consulting Provider: Consulting Provider Notified: Yes Consult to Specialist Group: OBGYN Person Notified: Dr. Coon Date Notified: 12/05/16 Time Notified: 12:30 Consult Notification Comment: Dr. Coon said he would be up at the hospital later this afternoon. 12/08/16 13:58 Consult to Case Mgmt/Social Srvs [CONS] Routine Reason for Case Mgmt/Social Srvs: Discharge Planning Swingbed/SNF/Longterm 12/10/16 10:40 Consult to Physician [CONS] Routine Comment: elev wbc, no clear infection, pelvic mass Consulting Provider: Joyce Zhao When should Consulting Provider be notified: Now Discharging clinician: Homero Davis NP <Vy Cruz - Last Filed: 12/13/16 12:24> Hospital Course - Time spent with patient Time with patient DS: Greater than 30 minutes (Time spent 35mins) Diagnosis - Discharge Diagnosis (1) Anemia Status: Acute (2) Pelvic mass in female Status: Acute (3) Gram-negative bacteremia Status: Acute (4) Microcytic hypochromic anemia Status: Acute (5) UTI (urinary tract infection) Status: Acute (6) Hypokalemia Status: Acute Discharge Plan - Discharge Data Condition at Discharge: Stable Discharge Diet: advance to your usual diet Activity: resume usual activities as tolerated - Forms/Instructions Additional Discharge Instructions: Follow PCP in 1week. Follow GI and OBGYN as scheduled Exam - Constitutional General appearance: no acute distress, over weight - Head Head exam: Present: normal inspection - Respiratory Respiratory exam: Present: clear to auscultation bilaterally - Cardiovascular Cardiovascular exam: Present: regular rate and rhythm - GI/Abdominal GI/Abdominal exam: Present: normal bowel sounds - Extremities Exam Extremities exam: Present: normal inspection
[2016-12-13] MEDS: FLUCONAZOLE INJ 200 MG in PREMIX 1 EACH IV SCH (10:11)
--- NOTE | 2016-12-13 12:43 | Infectious Disease Progress ---
Assessment and Plan (1) Gram-negative bacteremia Status: Acute Assessment and plan: Cause unclear, could be related to pelvic mass. UA was negative for infection on admission but she has had a Dickson. Repeat culture only with yeast which is related to her being on broad-spectrum antibiotic therapy since admission Recommendations: 1. Can switch from meropenem to ertapenem 1 g daily. This will facilitate convenient daily dosing at the same bed when she gets discharged today 2. Continue ertapenem for 14 days from date of negative blood cultures, so last dose will be in December 23 3. Treatment of the Lisbeth in the urine is not indicated Discussed with sister at bedside Current Visit: Yes (2) Leukocytosis Status: Acute Assessment and plan: Probably multifactorial with contributions including the bacteremia as well as a pelvic mass. It has now resolved. Current Visit: Yes (3) Pelvic mass in female Status: Acute Current Visit: Yes Infectious Disease - PN: Subj Interval history: Patient had an uneventful weekend. She has not had any fever. She really has no complaints today says she feels well. She supposed to transfer to swing bed today. Infectious Disease Exam (PN) - Constitutional Vitals: Temp Pulse Resp BP Pulse Ox 98.1 F 70 18 114/70 98 12/13/16 10:45 12/13/16 10:45 12/13/16 10:45 12/13/16 10:45 12/13/16 10:45 General appearance: no acute distress, over weight Exam: General appearance: no acute distress - Eye Eye exam: Present: EOMI. no icterus Pupils: Present: HERNAN - ENT ENT exam: no oropharyhgeal exudates - Respiratory Respiratory exam: vesicular BS, no crepitations or wheezes - Cardiovascular Cardiovascular exam: regular rate and rhythm, no murmurs - GI/Abdominal GI/Abdominal exam: normal bowel sounds, soft, non-tender, very large, hard pelvic mass - Extremities Exam Extremities exam: no edema - Skin Skin exam: no rash Results - Labs CBC & BMP: 12/13/16 05:54 12/13/16 05:54 Lab Results: I have reviewed the past 24 hour labs (She denies any blood on admission noted identified, repeat blood cultures negative at day 3.) Specialty Discharge - Follow Up or Referrals
[2016-12-13] MEDS ORDERED: ERTAPENEM 1,000 MG in SODIUM CHLORIDE 0.9% 50 ML IV SCH (13:00)
[2016-12-14 05:11] VITALS: BP 127/71
== END 2016-12-14 04:57 | DRG 392 ==
LOC: N.ED 20:46 → N.EDINP 22:22 → SUATTDRO 22:22 → N.3E 22:50
PROVIDERS: ADMIT Internal Medicine; ATTEND Internal Medicine